=== PATIENT | male | born 1990 | race Caucasian/White ===

== ENCOUNTER 2017-03-05 21:06 | Emergency (ER) | payer MEDICAID ==
[~2017-03-05] VITALS: Ht 181.6 cm; Wt 104.8 kg
[~2017-03-05 21:06] MED LIST: ALBU0.63 INH; ALBU18HF2 INH; ALPR0.5T8 PO; ATEN50TA PO; CLON-241 PO; CYCL-208 PO; HYDR-347 PO; IPRA4AER INH; LACO200T2 PO; ONDA4TAB4 PO; SERT50TA12 PO; TOPI100T43 PO; TOPI25TA64 PO
[2017-03-05 21:09] VITALS: Ht 181.6 cm; Wt 104.8 kg
--- OUTSIDE RECORDS SUMMARY | 2017-03-05 21:11 | XMS REPORT | Continuity of Care Document ---
Author Author [facility] Organization [facility] Address Unknown Phone Unavailable Care Team Providers Care Process Engineering Manager Name Role Phone Jv Magana Primary Care Physician Unavailable Source Comments Some departments are not documenting in the electronic medical record. If you do not see the information that you expected, contact Release of Information in the Health Information Management department at [phone] for further assistance in locating additional records.[facility] Active Allergies and Adverse Reactions Allergen Noted Date Severity Reactions Comments Del 06/27/2014 SEE COMMENTS Depletes potassium Current Medications Prescription Sig. Disp. Refills Start End Date Status Date cyclobenzaprine Take 10 mg by mouth three Active (FLEXERIL) 10 mg tablet times daily as needed. albuterol (VENTOLIN HFA, Inhale 2 Puffs by mouth Active PROAIR HFA) 90 every 6 hours as needed. mcg/actuation inhaler calcium carbonate Take 1,250 mg by mouth Active (CALCIUM 500) 1250 mg daily. tablet clonazePAM (KLONOPIN) 1 Take 1 Tab by mouth twice 8 Tab 0 08//20 Active mg tablet daily. For 3 days then 13 1mg at hs x2 days. lacosamide (VIMPAT) 200 Take 400 mg by mouth Active mg tab twice daily. atenolol (TENORMIN) 25 mg Take 25 mg by mouth Active tablet daily. sertraline (ZOLOFT) 50 mg Take 50 mg by mouth Active tablet daily. topiramate (TOPAMAX) 25 Take 25 mg by mouth every Active mg tablet morning, and 50 mg by mouth at bedtime. acetaminophen-codeine Take by mouth every 3-6 Active (TYLENOL #3) 300-30 mg hours as needed. tablet Active Problems Problem Noted Date Epilepsy (HCC) Depression Dislocation closed, shoulder Overview: multiple times Chronic headaches Numbness Overview: intermittent extremities and face Arthritis Overview: bilateral extremiies and back Tachycardia Hypertension Asthma ADHD (attention deficit hyperactivity disorder) Social History Tobacco Use Types Packs/Day Years Used Date Current Every Day Smoker Cigars 0.25 11 Smokeless Tobacco: Former Quit: User 06/27/2009 Tobacco Cessation: Ready to Quit: Yes; Counseling Given: Yes Comments: Alcohol Use Drinks/Week oz/Week Comments No 0.0 Last Filed Vital Signs Vital Sign Reading Time Taken Blood Pressure 117/64 06/27/2014 10:31 AM CDT Pulse 84 06/27/2014 10:31 AM CDT Temperature 36.8 C (98.2 F) 06/27/2014 10:31 AM CDT Respiratory Rate - - Height 1.778 m (5' 10") 06/27/2014 10:31 AM CDT Weight 86.8 kg (191 lb 5.8 oz) 06/27/2014 10:31 AM CDT Body Mass Index 27.46 06/27/2014 10:31 AM CDT Oxygen Saturation 98% 06/27/2014 10:31 AM CDT Plan of Care Health Maintenance Due Date Last Done Comments Physical (Comprehensive) 1996 Exam Pertussis Vaccine 2000 Tetanus Vaccine 2006 Influenza Vaccine 07/07/2017 Results from Last 3 Months Not on file
--- OUTSIDE RECORDS SUMMARY | 2017-03-05 21:12 | XMS REPORT | Continuity of Care Document ---
Author Author [facility] Organization [facility] Address Unknown Phone Unavailable Support Name Relationship Address Phone TANIA TILLEY MD Caregiver [address] [place] [address] Unavailable FORTINO LAY MD Caregiver [address] [facility] [place] [address] Unavailable IZAIAH BOB Next Of Kin [address] [place] [address] Insurance Providers Guarantor Janki Bob Address [address] [place] [address] Email DENIED 16 Payer [facility] Plan Policy Number [id number] Subscriber's Name Janki Bob Relationship 18 Self Effective Date 16 Expiration Date 16 Advance Directives Directive Response Recorded Date/Time Advanced Directives Type None 03/12/14 9:26pm Ordered Resuscitation Status Full Code 03/12/14 8:21pm Resuscitation Documents on File No 12/05/16 6:25am DPOA for Healthcare Only No 12/05/16 6:25am Living Will No 12/05/16 6:25am Problems Active Problems Medical Problem Onset Date Status Abdominal pain Unknown Acute Acute appendicitis Unknown Acute Alcohol abuse Unknown Acute Alcohol use Unknown Acute Anxiety Unknown Acute Anxiety Unknown Acute Anxiety Unknown Acute Atypical chest pain Unknown Acute Chronic diarrhea Unknown Acute Dehydration Unknown Acute Dizziness Unknown Acute Epigastric abdominal pain Unknown Acute Exhaustion Unknown Acute Fall from one level to another Unknown Acute Foreign body sensation in throat Unknown Acute Gastritis Unknown Acute Headache Unknown Acute History of seizure Unknown Acute History of tonic-clonic seizures Unknown Acute Increased anion gap metabolic acidosis Unknown Acute Leukocytosis Unknown Acute Muscle cramps Unknown Acute Non-cardiac chest pain Unknown Acute Non-cardiac chest pain Unknown Acute Right middle ear infection Unknown Acute Seizure Unknown Acute Spastic intestine Unknown Acute Testicular pain Unknown Acute Viral syndrome Unknown Acute Past Problems Medical Problem Onset Date Alcoholism /alcohol abuse Unknown Chest wall contusion Unknown Fracture, metacarpal shaft Unknown Medications Current Home Medications Medication Dose Units Route Directions Days Qty Instructions Start Date Albuterol Sulfate 0.63 Mg/3 Ml Vial.neb 1 Vial Inhalation As Needed as needed for Shortness Of Air 05/22/15 Albuterol Sulfate (Ventolin Hfa) 18 Gm Hfa.aer.ad 2 Puff Inhalation Every 4 -6 Hours as needed for Shortness Of Air 04/04/13 Albuterol/Ipratropium (Combivent Respimat Inhal [place]) 120 Puff/4 Gm Inha 1 Puff Inhalation As Needed 07/10/16 Alprazolam 0.5 Mg Tablet 0.5 Mg Oral Twice A Day as needed for Prn Orders 01/12/16 Atenolol 50 Mg Tablet 50 Mg Oral Daily 01/12/16 Clonazepam 1 Mg Tablet 1 Mg Oral Twice A Day as needed for Anxiety 01/23/14 Cyclobenzaprine Hcl 10 Mg Tablet 1-2 Tab Oral Bedtime as needed for Spasms 03/31/13 Hydrocodone/Acetaminophen ([place] 7.5-325 Tablet) 7.5-325 Tablet 1-2 Tab Oral Every 4 Hours Prn as needed for Pain 60 Tablet 12/05/16 Lacosamide (Vimpat) 200 Mg Tablet 200 Mg Oral Twice A Day Ondansetron Hcl (Zofran) 4 Mg Tablet 4 Mg Oral Every 6 Hours as needed for Nausea 10 Tablet 12/05/16 Sertraline Hcl (Sertraline) 50 Mg Tablet 50 Mg Oral Daily Topiramate 25 Mg Tablet 25 Mg Oral Twice A Day TAKE WITH 100 MG TO EQUAL 125MG BID 07/10/16 Topiramate 100 Mg Tablet 100 Mg Oral Twice A Day TAKE WITH 25 MG TO EQUAL 125 BID 11/09/15 Past Home Medications Medication Directions Ordered Status Acetaminophen/Codeine Phosphate (Tylenol #3) 1 Tab Tablet, 1-2 Tab Oral Every 6 Hours as needed for Pain 03/12/14 Discontinued Divalproex Sodium (Depakote Er) 500 Mg Tab.sr.24h, 1500 Mg Oral Daily Discontinued Doxycycline Hyclate 100 Mg Tablet, 100 Mg Oral Twice A Day 01/12/16 Discontinued Hydrocodone/Acetaminophen ([place] 5-325 Tablet) 5-325 Tablet, 1 Tab Oral Every 6 Hours as needed for Pain 11/28/16 Discontinued Levetiracetam (Keppra) 1,000 Mg Tablet, 2 Tab Oral Daily 05/16/10 Discontinued Phenytoin Sodium Extended (Dilantin) 100 Mg Capsule, 400 Mg Oral Daily Discontinued Potassium Chloride 20 Meq Tab.prt.sr, 20 Meq Oral Daily 10/30/12 Discontinued Topiramate (Topamax) 50 Mg Tablet, 1 Tab Oral Twice A Day 05/22/15 Discontinued Social History Social History Problem Response Recorded Date/Time Onset Date Status Reason for Hospitalization ORIF LEFT SECOND METACARPAL 12/05/2016 9:21am Not Applicable Not Applicable Chewing Tobacco Status No 03/14/2014 3:00pm Not Applicable Not Applicable Hx Substance Use Y marijuana a couple of weeks ago 12/05/2016 6:33am Not Applicable Not Applicable Hx Alcohol Use Y 6-12 packs a week 12/05/2016 6:33am Not Applicable Not Applicable Has the pt used tobacco in the last 12 months Yes 12/05/2016 6:33am Not Applicable Not Applicable Tobacco Usage smoke 11/27/2014 11:11pm Not Applicable Not Applicable Query Response Start Date Stop Date Smoking Status Current every day smoker Hospital Discharge Instructions Instructions: Care Instructions: I was in the hospital because (patient own words): "surgery on my broken finger on my left hand" Discharge Diet: Resume normal diet as tolerated. Discharge Activity: Please refer to Dr. Tilley's postoperative instructions. Follow Up Appointments: Please refer to Dr. Tilley's postoperative instructions. 12-13-16 AT 2:30 WITH Lucio BUNCH Pending Lab / Results: No Pending Lab Expected Signs/Symptoms: Please refer to Dr. Tilley's postoperative instructions. Notify Physician If: Please refer to Dr. Tilley's postoperative instructions. During Business Hours:: Please call our office at [phone]. After Business Hours:: Please call the hospital at [phone] and have the physician or the covering physician paged. Pain Management/Treatment: Please refer to Dr. Tilley's postoperative instructions. Wound/Incision Care: Please refer to Dr. Tilley's postoperative instructions. Condition at time of discharge: Good Plan of Care Discharge Date 12/05/16 9:46am Instructions/Education Provided [facility] [place] General Instructions Prescriptions See Medication Section Functional Status Query Response Date Recorded Ability to complete ADL's impeded by No change December 05, 2016 6:25am Allergies, Adverse Reactions, Alerts Allergen Type Severity Reaction Status Last Updated Levetiracetam Allergy Severe HYPOKALEMIA, NUMBNESS Active 12/05/16 Immunizations Query Response on File Recorded Date/Time Hx Influenza Vaccination No 12/02/16 9:05am Hx Pneumococcal Vaccination No 12/02/16 9:05am Hx Tetanus, Diptheria, Pertussis Yes 07/10/15 10:50am Hx Influenza Vaccination No 12/02/16 9:05am Hx Tetanus, Diptheria, Pertussis Yes 07/10/15 10:50am Influenza Vaccine Hx NONE 11/27/16 11:47pm Tdap Vaccine Hx UNK 11/27/16 11:30pm Vital Signs Acute Vital Signs Vital Response Date/Time Temperature (Fahrenheit) 97.6 deg F (96.8 - 99.1) 12/05/2016 9:06am Temperature (Calculated Celsius) 36.57465 degrees C (36.0 - 37.3) 12/05/2016 9:06am Temperature Source Oral 12/05/2016 9:06am Pulse Rate (adult) 88 bpm (60 - 100) 12/05/2016 9:39am Respiratory Rate 18 breaths/min (10 - 20) 12/05/2016 9:39am O2 Sat by Pulse Oximetry 97 % (90 - 100) 12/05/2016 9:39am Oxygen Delivery Method Room Air 12/05/2016 7:10am Oxygen Delivery Method Room Air 12/05/2016 9:39am Blood Pressure 108/70 mm Hg 12/05/2016 9:39am Blood Pressure Source Automatic Cuff 12/05/2016 9:39am Height (Feet) 6 feet 12/05/2016 6:09am Height (Inches) 0.00 inches 12/05/2016 6:09am Weight (Kilograms) 103.100 kg 12/05/2016 6:09am Body Mass Index (BMI) 30.8 12/05/2016 6:09am Results Laboratory Results Test Name Result Units Flags Reference Collection Date/Time Result Date/ Time Comments White Blood Count 10.2 T/MM3 4.5-11.0 12/01/2016 2:48pm 12/01/2016 2: 56pm Red Blood Count 4.84 M/MM3 4.50-5.90 12/01/2016 2:48pm 12/01/2016 2: 56pm Hemoglobin 15.3 GM/DL 13.5-17.5 12/01/2016 2:48pm 12/01/2016 2:56pm Hematocrit 45.4 % 41-53 12/01/2016 2:48pm 12/01/2016 2:56pm Mean Corpuscular Volume 93.8 UM3 80-100 12/01/2016 2:48pm 12/01/2016 2: 56pm Mean Corpuscular Hemoglobin 31.6 UUG 26-34 12/01/2016 2:48pm 2016 2:56pm Mean Corpuscular Hemoglobin Concent 33.7 GM/DL 31-37 12/01/2016 2:48pm 12/01/2016 2:56pm RDW Standard Deviation 43.2 FL 36.9-50.2 12/01/2016 2:48pm 12/01/2016 2 :56pm Platelet Count 325 T/MM3 130-400 12/01/2016 2:48pm 12/01/2016 2:56pm Mean Platelet Volume 9.5 UM3 9.4-12.4 12/01/2016 2:48pm 12/01/2016 2: 56pm Neutrophils (%) (Auto) 60.0 % 33-66 12/01/2016 2:48pm 12/01/2016 2: 56pm Lymphocytes (%) (Auto) 29.5 % 23-45 12/01/2016 2:48pm 12/01/2016 2: 56pm Monocytes (%) (Auto) 8.2 % 0-9.0 12/01/2016 2:48pm 12/01/2016 2:56pm Eosinophils (%) (Auto) 1.8 % 0-4 12/01/2016 2:48pm 12/01/2016 2:56pm Basophils (%) (Auto) 0.4 % 0-2 12/01/2016 2:48pm 12/01/2016 2:56pm Immature Granulocyte % (Auto) 0.1 % 0.0-0.5 12/01/2016 2:48pm 2016 2:56pm Absolute Neutrophils (auto) 6.1 T/MM3 1.8-7.7 12/01/2016 2:48pm 2016 2:56pm Absolute Lymphocytes (auto) 3.0 T/MM3 1-4.8 12/01/2016 2:48pm 2016 2:56pm Absolute Monocytes (auto) 0.8 T/MM3 0-0.8 12/01/2016 2:48pm 12/01/2016 2:56pm Absolute Eosinophils (auto) 0.2 T/MM3 0-0.5 12/01/2016 2:48pm 2016 2:56pm Absolute Basophils (auto) 0.0 T/MM3 0-0.2 12/01/2016 2:48pm 12/01/2016 2:56pm Absolute Immature Granulocyte (auto 0.01 T/MM3 0.00-0.03 12/01/2016 2: 48pm 12/01/2016 2:56pm Icterus Index < 2 0-7 12/01/2016 2:48pm 12/01/2016 3:03pm Chemistry Specimen Hemolysis < 15 0-25 12/01/2016 2:48pm 12/01/2016 3 :03pm 0-25: Specimen Exhibited No Hemolysis. Turbidity < 20 0-20 12/01/2016 2:48pm 12/01/2016 3:03pm Sodium Level 141 MEQ/L 134-144 12/01/2016 2:48pm 12/01/2016 3:03pm Potassium Level 4.5 MEQ/L 3.6-5 12/01/2016 2:48pm 12/01/2016 3:03pm Chloride Level 109 MEQ/L H 98-107 12/01/2016 2:48pm 12/01/2016 3:03pm Carbon Dioxide Level 23 MEQ/L 22-30 12/01/2016 2:48pm 12/01/2016 3: 03pm Anion Gap 9 MEQ/L 5-15 12/01/2016 2:48pm 12/01/2016 3:03pm Blood Urea Nitrogen 14.0 MG/DL 9-20 12/01/2016 2:48pm 12/01/2016 3: 03pm Creatinine 1.0 MG/DL 0.8-1.5 12/01/2016 2:48pm 12/01/2016 3:03pm BUN/Creatinine Ratio 14 RATIO 6-26 12/01/2016 2:48pm 12/01/2016 3:03pm Glomerular Filtration Rate Calc 90 12/01/2016 2:48pm 12/01/2016 3: 03pm Glucose Level 107 MG/DL 75-110 12/01/2016 2:48pm 12/01/2016 3:03pm Calculated Osmolality 272 MOSM/KG 261-280 12/01/2016 2:48pm 12/01/2016 3:03pm Calcium Level 10.0 MG/DL 8.4-10.2 12/01/2016 2:48pm 12/01/2016 3:03pm Procedures Procedure Status Date Provider(s) Apply forearm splint Completed 11/27/16 PRASHANT GAMBOA MD X-ray exam of hand Completed 11/27/16 Emergency dept visit Completed 11/27/16 Open reduction and internal fixation of fracture of metacarpal bone of left hand Completed 12/05/16 TANIA TILLEY MD Encounters Encounter Location Arrival/Admit Date Discharge/Depart Date Attending Provider Departed [facility] 12/05/16 5:45am 12/05/16 9: 46am TANIA TILLEY MD Registered Clinic [facility] 12/01/16 2:35pm TANIA TILLEY MD Departed Emergency Room [facility] 11/27/16 11:07pm 11/28/16 12: 38am PRASHANT GAMBOA MD
--- OUTSIDE RECORDS SUMMARY | 2017-03-05 21:12 | XMS REPORT | Continuity of Care Document ---
Author Author [facility] Organization [facility] Address Unknown Phone Unavailable Allergies Active Description Code Type Severity Reaction Onset Reported/Identified Relationship to Patient Clinical Status Yes No Known Allergies Drug Allergy 12/03/2012 Yes No Known Drug Allergies Drug Allergy 12/03/2012 Yes No Known Food Allergies Food Allergy 12/03/2012 Yes Keppra NKMA N/A N/A 02/15/2016 Yes Keppra NKMA N/A N/A 02/15/2016 Medications Medication Packaging Start Date Stop Date Route Dosage Sig topiramate(Topamax) 02/15/2016 Oral 100 mg 100 mg, Oral, BID , 0 Refill(s) sertraline(Zoloft) 02/15/2016 Oral 100 mg 100 mg, Oral, Daily , 0 Refill(s) clonazePAM(clonazePAM) 02/15/2016 Oral 1 mg 1 mg, Oral, BID, 0 Refill(s) cephalexin(cephalexin) 02/15/2016 04/02/2016 Oral Oral, 0 Refill(s) cyclobenzaprine(cyclobenzaprine) 02/15/2016 Oral 10 mg 10 mg , Oral, BID, PRN: as needed for muscle spasm, 0 Refill(s) ALPRAZolam(Xanax) 02/15/2016 Oral 0.5 mg 0.5 mg, Oral, TID, 0 Refill(s) atenolol(atenolol) 02/15/2016 Oral 50 mg 50 mg, Oral, Daily, 0 Refill(s) Sodium Chloride 0.9%(sodium chloride 0.9% 1,000 mL) 1,000 mL 04/02/2016 04/03/2016 IV 100 mL/hr, IV ondansetron(Zofran) 1 tabs 04/02/2016 04/03/2016 Oral 4 mg 4 mg=1 tabs, Oral, q6hr, PRN: Nausea folic acid(folic acid) 1 tabs 04/02/2016 04/03/2016 Oral 1 mg 1 mg=1 tabs, Oral, Daily LORazepam(Ativan) 1 mL 04/02/2016 04/03/2016 IV Push 2 mg 2 mg= 1 mL, IV Push, q5min, PRN: Seizure promethazine(Phenergan) 1 mL 04/02/2016 04/03/2016 IntraMuscular 25 mg 25 mg=1 mL, IntraMuscular, q4hr, PRN: Nausea haloperidol(Haldol) 0.1 mL 04/02/2016 04/03/2016 IV Push 0.5 mg 0.5 mg=0.1 mL, IV Push, q2hr, PRN: Other (See Comment) thiamine(thiamine) 1 tabs 04/02/2016 04/03/2016 Oral 100 mg 100 mg=1 tabs, Oral, Daily ibuprofen(ibuprofen) 1 tabs 04/02/2016 04/03/2016 Oral 400 mg 400 mg=1 tabs, Oral, q6hr, PRN: Pain Mild (1-3) atenolol(atenolol) 1 tabs 04/02/2016 04/03/2016 Oral 50 mg 50 mg= 1 tabs, Oral, Daily sertraline(Zoloft) 1 tabs 04/02/2016 04/03/2016 Oral 100 mg 100 mg=1 tabs, Oral, Daily lacosamide(Vimpat) 1 tabs 04/02/2016 04/03/2016 Oral 200 mg 200 mg=1 tabs, Oral, BID topiramate(Topamax) 1 tabs 04/02/2016 04/03/2016 Oral 100 mg 100 mg=1 tabs, Oral, BID Problems Date Dx Coded Attending Type Code Diagnosis Diagnosed By 12/03/2012 Chandler Nix MD Final 345.90 EPILEPSY NOS W/O INTRACT 04/02/2016 Camelia Vaz Admitting G40.919 04/08/2016 Camelia Vaz Final F10.20 Alcohol dependence, uncomplicated 04/08/2016 Camelia Vaz Final F12.10 Cannabis abuse, uncomplicated 04/08/2016 Camelia Vaz Final F17.200 Nicotine dependence, unspecified, uncomplicated 04/08/2016 Camelia Vaz Final G40.909 Epilepsy, unspecified, not intractable, without status epilepticus 04/08/2016 Camelia Vaz Reason R56.9 Unspecified convulsions Procedures Results Test Result Range Basic Metabolic Panel (BMP) - 04/02/16 02:55 Anion Gap 13 NA 3-20 BUN 11 mg/dL 4-20 Calcium 9.1 mg/dL 8.6-10.0 Chloride 112 mEq/L 99-109 CO2 16 mEq/L 22-32 Creatinine 1.12 mg/dL 0.64-1.27 Glucose 107 mg/dL 70-100 Potassium 4.6 mEq/L 3.6-5.1 Sodium 141 mEq/L 136-144 eGFR - 04/02/16 02:55 eGFR >60 NA >60 Basic Metabolic Panel (BMP) - 04/02/16 03:47 Anion Gap 14 NA 3-20 BUN 10 mg/dL 4-20 Calcium 9.2 mg/dL 8.6-10.0 Chloride 112 mEq/L 99-109 CO2 17 mEq/L 22-32 Creatinine 1.08 mg/dL 0.64-1.27 Glucose 103 mg/dL 70-100 Potassium 4.6 mEq/L 3.6-5.1 Sodium 143 mEq/L 136-144 eGFR - 04/02/16 03:47 eGFR >60 NA >60 Urine Drug Screen - 04/02/16 03:47 Tricyclics Not Detected NA Amph/Meth/Ecstasy Negative NA Barbiturates Negative NA Benzodiazepine Positive NA Cannabinoid Positive NA Cocaine Negative NA EDDP (Methadone met.) Negative NA Opiate Negative NA Phencyclidine (PCP) Negative NA Prolactin - 04/02/16 08:12 Prolactin 3.2 ng/mL 3.5-19.4 Thiamin (Vit B1) - 04/02/16 08:12 Thiamin (Vit B1) 132 nmol/L 70-180 Topiramate - 04/02/16 13:26 Topiramate 4.8 mcg/mL Urinalysis with reflex microscopic - 04/02/16 17:30 Appearance Sl Cloudy NA Bilirubin Negative NA Negative Blood Negative NA Negative Color Yellow NA Glucose, Urine Negative Negative Ketones Pos 1+ Negative Leukocyte Esterase Negative NA Negative Nitrites Negative NA Negative pH 6.0 NA 5.0-8.0 Protein Negative NA Negative Specific Surfside 1.020 NA 1.003-1.030 UA Collection type Clean Catch NA Urobilinogen Negative mg/dL <1.0 Encounters ACCT No. Visit Date/Time Discharge Status Pt. Type Provider Facility Loc./Unit Complaint [id number] 12/03/2012 09:04:00 2012 18:45:00 DIS Inpatient Dinah DAILY, [facility] on [address]
--- OUTSIDE RECORDS SUMMARY | 2017-03-05 21:12 | XMS REPORT | Continuity of Care Document ---
Author Author [facility] Organization [facility] Address Unknown Phone Unavailable Care Team Providers Care Singer Back Tender Name Role Phone FORTINO LAY MD Primary Care Physician [phone] Insurance Providers Payer Name Policy Number Subscriber Name Relationship [facility] [employer] [facility] [id number] Janki Bob 17 Self Advance Directives Directive Response Recorded Date/Time Advanced Directives Type None 03/12/14 9:26pm Ordered Resuscitation Status Full Code 03/12/14 8:21pm Problems Medical Problems Problem Onset Date Status Atypical chest pain Unknown Active Gastritis Unknown Active Leukocytosis Unknown Active Seizure Unknown Active Anxiety Unknown Active History of seizure Unknown Active Non-cardiac chest pain Unknown Active Anxiety Unknown Active Exhaustion Unknown Active Muscle cramps Unknown Active Viral syndrome Unknown Active Dehydration Unknown Active Medications Medication Dose Route Sig Days/Qty Instructions Order Date Discontinued Date Status Phenytoin Sodium Extended 400 Mg PO DAILY 05/16/10 10/30/12 Discontinued Levetiracetam 2 Tab PO DAILY 05/16/10 10/30/12 Discontinued Divalproex Sodium 1,500 Mg PO DAILY 10/30/12 03/31/13 Discontinued Potassium Chloride 20 Meq PO DAILY 10/30/12 04/04/13 Discontinued Cyclobenzaprine Hcl 10 Mg PO THREE TIMES A DAY 03/31/13 Active Albuterol Sulfate NEEDED 04/04/13 Active Atenolol 25 Mg PO DAILY 01/23/14 Active Sertraline Hcl 50 Mg PO DAILY 01/23/14 Active Clonazepam 1 Mg PO TWICE A DAY PRN PRN ORDERS 01/23/14 Active Fluticasone Propionate 100 Mcg IH TWICE A DAY 03/12/14 Active Calcium Carbonate 1 Tab.chew PO NEEDED 03/12/14 Active Acetaminophen/Codeine Phosphate 1 Tab PO NEEDED 03/12/14 Active Ranitidine Hcl 150 Mg PO TWICE A DAY 03/12/14 Active Social History Social History Problem Response Recorded Date/Time Chewing Tobacco Status No 03/14/2014 3:00pm Hx Substance Use Y MARIJUANA AND ETOH 11/27/2014 11:30pm Hx Alcohol Use Yes 11/27/2014 11:30pm Has the pt used tobacco in the last 12 months Yes 03/12/2014 9:27pm Tobacco Usage smoke 11/27/2014 11:11pm Query Response Start Date Stop Date Smoking Status Current every day smoker Hospital Discharge Instructions No hospital discharge instructions. Plan of Care No plan of care. Functional Status Query Response Date Recorded Physical Hygiene Self November 27, 2014 11:30pm Disabilities None November 27, 2014 11:30pm Devices Used None November 27, 2014 11:30pm Dressing Self November 27, 2014 11:30pm Ambulation Self November 27, 2014 11:30pm Diet Self November 27, 2014 11:30pm Mental Status Alert November 28, 2014 12:50am Disabilities None November 27, 2014 11:30pm Devices Used None November 27, 2014 11:30pm Physical Hygiene Self November 27, 2014 11:30pm Dressing Self November 27, 2014 11:30pm Ambulation Self November 27, 2014 11:30pm Diet Self November 27, 2014 11:30pm Allergies, Adverse Reactions, Alerts Allergen Type Severity Reaction Status Last Updated Levetiracetam Allergy Unknown Active 11/27/14 Immunizations Name Given Type Hx Influenza Vaccination N PT REFUSES TO TAKE THEM Historical Hx Pneumococcal Vaccination No Historical Hx Tetanus, Diptheria, Pertussis Yes Historical Hx Influenza Vaccination N PT REFUSES TO TAKE THEM Historical Hx Tetanus, Diptheria, Pertussis Yes Historical Vital Signs Acute Vital Signs Vital Response Date/Time Temperature (Fahrenheit) 98.3 deg F (96.8 - 99.1) Temperature (Calculated Celsius) 36.44169 degrees C (36.0 - 37.3) Pulse Rate (adult) 70 bpm (60 - 100) Respiratory Rate 18 breaths/min (10 - 20) O2 Sat by Pulse Oximetry 100 % (90 - 100) Blood Pressure 125/67 mm Hg Height 5 ft 10 in Weight 202 lb Body Mass Index 29.0 kg/m^2 Results Test Source Date Result Interp. Ref. Range Comments Acetaminophen Level March 14, 2014 3:18pm < 10 UG/ML L 10-30 TOXIC <4 HR POST INGESTION: >150 MG/L;TOXIC <12 HR POST INGESTION: >50 MG/L Activated Partial Thromboplast Time August 09, 2013 7:25am 34.1 SEC N 24-36 Ordering r/o VTE Yes Alanine Aminotransferase (ALT/SGPT) November 27, 2014 11:35pm 18 U/L L 21 -72 Albumin November 27, 2014 11:35pm 4.9 G/DL N 3.5-5.0 Albumin/Globulin Ratio November 27, 2014 11:35pm 1.6 RATIO N 1.1-2.2 Alcohol, Quantitative November 27, 2014 11:35pm 88 MG/DL - Alkaline Phosphatase November 27, 2014 11:35pm 49 U/L N 38-126 Amylase Level January 23, 2014 7:54pm 98 U/L N 30-110 Anion Gap November 27, 2014 11:35pm 14 MEQ/L N 5-15 Aspartate Amino Transf (AST/SGOT) November 27, 2014 11:35pm 39 U/L N 17- 59 BUN/Creatinine Ratio November 27, 2014 11:35pm 6 RATIO N 6-26 Band Neutrophils # March 12, 2014 6:10pm 2.1 T/MM3 - Band Neutrophils % March 12, 2014 6:10pm 11.0 % H 0-6 Basophils # (Auto) November 27, 2014 11:35pm 0.0 T/MM3 N 0-0.2 Basophils (%) (Auto) November 27, 2014 11:35pm 0.3 % N 0-2 Blood Urea Nitrogen November 27, 2014 11:35pm 5.0 MG/DL L 9-20 C-Reactive Protein October 30, 2012 11:55am 6.3 MG/L N 0-9 Calcium Level November 27, 2014 11:35pm 9.8 MG/DL N 8.4-10.2 Calculated Osmolality November 27, 2014 11:35pm 274 MOSM/KG N 261-280 Carbon Dioxide Level November 27, 2014 11:35pm 21 MEQ/L L 22-30 Chloride Level November 27, 2014 11:35pm 109 MEQ/L H 98-107 Conjugated Bilirubin March 31, 2013 10:40pm 0.00 MG/DL N 0.00-0.30 Creatinine November 27, 2014 11:35pm 0.9 MG/DL N 0.8-1.5 D-Dimer March 14, 2014 3:18pm < 150 NG/ML 0-230 <224 NG/ML=PRESUMPTIVE NEGATIVE FOR PE OR DVT>224 NG/ML=ADDITIONAL EVALUATION FOR PE OR DVT RECOMMENDED Eosinophils # (Auto) November 27, 2014 11:35pm 0.4 T/MM3 N 0-0.5 Eosinophils # (Manual) July 03, 2009 5:38pm 0.2 T/MM3 N 0-0.5 Eosinophils % (Manual) July 03, 2009 5:38pm 2.0 % N 0-4 Eosinophils (%) (Auto) November 27, 2014 11:35pm 4.1 % H 0-4 Erythrocyte Sedimentation Rate October 30, 2012 11:55am 2 MM/HR N 0-15 Free Thyroxine March 14, 2014 3:18pm 1.01 NG/DL N 0.78-2.19 Globulin November 27, 2014 11:35pm 3.0 G/DL N 2.4-3.6 Glucose Level November 27, 2014 11:35pm 91 MG/DL N 75-110 Hematocrit November 27, 2014 11:35pm 42.7 % N 41-53 Hemoglobin November 27, 2014 11:35pm 14.5 GM/DL N 13.5-17.5 Influenza Type A Antigen March 14, 2014 4:05pm Negative - Negative for Flu A protein antigen. Assay sensitivity is90%. Influenza Type B Antigen March 14, 2014 4:05pm Negative - Negative for Flu B protein antigen. Assay sensitivity is90%. Lamotrigine (Lamictal) Level March 14, 2014 3:18pm 8.9 mcg/mL - Reference Range:2.5 - 15.0 Test Performed by: [place] [address] Eligibility Clerk: José Miguel Choudhury III, M.D. Lamotrigine performed at [facility], [address] [place] [address] Administrator Pesticide Macey Lin MD Levetiracetam (Keppra) Level January 05, 2012 9:25pm Ref lab rpt scanned - --- 01/09/12 0821 ---NGUYEN previously reported as: SEND OUT --- 01/09/12820 --- LEVET previously reported as: --- 01/09/12820 --- LEVET previously reported as: SEND OUT Lipase November 27, 2014 11:35pm 33 U/L N 23-300 Lymphocytes # (Auto) November 27, 2014 11:35pm 4.2 T/MM3 N 1-4.8 Lymphocytes # (Manual) March 12, 2014 6:10pm 1.1 T/MM3 N 1-4.8 Lymphocytes % (Manual) March 12, 2014 6:10pm 6.0 % L 23-45 Lymphocytes (%) (Auto) November 27, 2014 11:35pm 47.1 % H 23-45 Mean Corpuscular Hemoglobin November 27, 2014 11:35pm 31.9 UUG N 26-34 Mean Corpuscular Hemoglobin Concent November 27, 2014 11:35pm 34.0 GM/DL N 31-37 Mean Corpuscular Volume November 27, 2014 11:35pm 94.1 UM3 N 80-100 Mean Platelet Volume November 27, 2014 11:35pm 10.4 UM3 N 9.4-12.4 Monocytes # (Auto) November 27, 2014 11:35pm 0.7 T/MM3 N 0-0.8 Monocytes # (Manual) July 03, 2009 5:38pm 0.4 T/MM3 N 0-0.8 Monocytes % (Manual) July 03, 2009 5:38pm 4.0 % N 0-9.0 Monocytes (%) (Auto) November 27, 2014 11:35pm 8.4 % N 0-9.0 Monoscreen October 30, 2012 11:55am Negative - Neutrophils # (Auto) November 27, 2014 11:35pm 3.5 T/MM3 N 1.8-7.7 Neutrophils # (Manual) March 12, 2014 6:10pm 15.9 T/MM3 H 1.8-7.7 Neutrophils % (Manual) March 12, 2014 6:10pm 83.0 % H 33-66 Neutrophils (%) (Auto) November 27, 2014 11:35pm 39.5 % N 33-66 Phenytoin (Dilantin) Level January 06, 2012 11:35am 16.6 UG/ML N 10-20 Platelet Count November 27, 2014 11:35pm 204 T/MM3 N 130-400 Potassium Level November 27, 2014 11:35pm 4.3 MEQ/L N 3.6-5 Prolactin March 14, 2014 3:18pm 6.5 NG/ML - Normal Female (Non- ): 3.0-18.6 ng/ml;Males: 3.7-17.9 ng/ml Prothromb Time International Ratio August 09, 2013 7:25am 0.95 N 0.86- 1.10 THERAPUTIC RANGE=2.00-3.00 FOR ANTI-THROMBOSIS THERAPUTIC RANGE=2.50- 3.50 FOR IMPLANTED VALVE RDW Standard Deviation November 27, 2014 11:35pm 43.5 FL N 36.9-50.2 Red Blood Count November 27, 2014 11:35pm 4.54 M/MM3 N 4.50-5.90 Rotavirus Antigen (LAB) July 30, 2014 12:00am Negative - Salicylates Level March 14, 2014 3:18pm < 1.0 MG/DL L 2-20 Sodium Level November 27, 2014 11:35pm 144 MEQ/L N 134-144 Stool Occult Blood July 30, 2014 12:00am Negative - Stool for White Cells July 30, 2014 12:00am Positive - Thyroid Stimulating Hormone (TSH) March 14, 2014 3:18pm 2.21 MIU/L DN 0.47 -4.68 Topiramate Level March 14, 2014 3:18pm 2.5 mcg/mL - Reference Range: 2.0 - 20.0 Test Performed by: [place] [address] Eligibility Clerk: José Miguel Choudhury III, M.D. [place] [address] Administrator Pesticide Macey Lin MD Total Bilirubin November 27, 2014 11:35pm 0.60 MG/DL N 0.20-1.30 Total Protein November 27, 2014 11:35pm 7.9 G/DL N 6.3-8.2 Troponin I March 14, 2014 3:18pm < 0.012 ng/ml 0-0.12 Unconjugated Bilirubin March 31, 2013 10:40pm 0.00 MG/DL N 0.00-1.10 Urine Bacteria March 12, 2014 7:37pm Trace H - Has specimen been collected/obtained? Y Urine Bilirubin November 27, 2014 11:25pm Negative - Has specimen been collected/obtained? Y Urine Blood November 27, 2014 11:25pm Negative - Has specimen been collected/obtained? Y Urine Collection Type November 27, 2014 11:25pm Cleancatch-midstream - Has specimen been collected/obtained? Y Urine Color November 27, 2014 11:25pm Yellow - Has specimen been collected/obtained? Y Urine Glucose (UA) November 27, 2014 11:25pm Negative - Has specimen been collected/obtained? Y Urine Ketones November 27, 2014 11:25pm Negative - Has specimen been collected/obtained? Y Urine Leukocyte Esterase November 27, 2014 11:25pm Negative - Has specimen been collected/obtained? Y Urine Mucus March 12, 2014 7:37pm Present - Has specimen been collected /obtained? Y Urine Nitrite November 27, 2014 11:25pm Negative - Has specimen been collected/obtained? Y Urine Protein November 27, 2014 11:25pm Negative - Has specimen been collected/obtained? Y Urine RBC March 12, 2014 7:37pm None seen /HPF - Has specimen been collected/obtained? Y Urine Specific [place] November 27, 2014 11:25pm 1.015 - Has specimen been collected/obtained? Y Urine Sperm March 12, 2014 7:37pm Present - Has specimen been collected /obtained? Y Urine Squamous Epithelial Cells March 12, 2014 7:37pm None seen - Has specimen been collected/obtained? Y Urine Turbidity November 27, 2014 11:25pm Clear - Has specimen been collected/obtained? Y Urine Urobilinogen November 27, 2014 11:25pm 0.2 EU/DL - Has specimen been collected/obtained? Y Urine WBC March 12, 2014 7:37pm 1-3 /HPF - Has specimen been collected/ obtained? Y Urine pH November 27, 2014 11:25pm 7.5 - Has specimen been collected/ obtained? Y Valproic Acid (Depakene) Level October 30, 2012 11:55am 36.3 UG/ML L 50 -120 White Blood Count November 27, 2014 11:35pm 8.9 T/MM3 N 4.5-11.0 Chemistry Specimen Hemolysis November 27, 2014 11:35pm 150 H 0-25 0-25: No Hemolysis.26-70: Slight Hemolysis - can falsely elevate K and Urine Protein. 71-285: Moderate Hemolysis - can falsely elevate K, Troponin I, CA 19-9, PTH, CSF GLucose, and Urine Protein, and can falsely decrease Phenytoin. 286-999: Gross Hemolysis - can falsely elevate K, Troponin I, CA 19-9, PTH, CSF Glucose, and Urine Protine, and can falsely decrease Phenytoin. Recommend specimen recollection. Urinalysis Comment November 27, 2014 11:25pm Microscopic not ind. - Has specimen been collected/obtained? Y Lab Scanned Report July 30, 2014 7:02pm LAB TEST FORM REQUEST [id number] - EKG July 03, 2009 5:40pm Complete - Turbidity November 27, 2014 11:35pm < 20 0-20 Glomerular Filtration Rate Calc November 27, 2014 11:35pm 103 - Immature Granulocyte # (Auto) November 27, 2014 11:35pm 0.05 T/MM3 H 0.00 -0.03 Immature Granulocyte % (Auto) November 27, 2014 11:35pm 0.6 % H 0.0-0.5 Icterus Index November 27, 2014 11:35pm < 2 0-7 FW-Imr-I-Type Natriuretic Peptide August 09, 2013 7:25am 6 PG/ML N 0- 175 Rule in cut points: <50 years old=450; 50-75 years old=900; >75 years old=1800; When utilizing ProBNP rule-in cut points, adjustment for impaired renal function is typically not required. Urine Microscopic Not Indicated May 16, 2010 1:55am Not indicated - Has specimen been collected/obtained? Y Clostridium difficile [id number] July 30, 2014 12:00am Negative - C. difficile Toxin B Gene (PCR) July 30, 2014 12:00am Negative - If Toxin A is clinically indicated, treat accordingly. Stool Culture Stool July 30, 2014 12:00am Helicobacter pylori Rapid Urease Gastric Biopsy April 05, 2013 1:44pm Procedures No known history of procedures. Encounters Encounter Location Date/Time Departed Emergency Room [facility] 11/27/14 9:56pm Recent Diagnosis
--- OUTSIDE RECORDS SUMMARY | 2017-03-05 21:31 | XMS REPORT | Continuity of Care Document ---
Author Author [facility] Organization [facility] Address Unknown Phone Unavailable Care Team Providers Care Certified Surgical Assistant Name Role Phone Jv Magana Primary Care Physician Unavailable Source Comments Some departments are not documenting in the electronic medical record. If you do not see the information that you expected, contact Release of Information in the Health Information Management department at [phone] for further assistance in locating additional records.[facility] Active Allergies and Adverse Reactions Allergen Noted [...]
--- OUTSIDE RECORDS SUMMARY | 2017-03-05 21:32 | XMS REPORT | Continuity of Care Document ---
Author Author [facility]3] Organization [facility]3] Address Unknown Phone Unavailable Allergies Active Description [...] NA 5.0-8.0 Protein Negative NA Negative Specific [place] 1.020 NA 1.003-1.030 UA Collection type Clean Catch NA Urobilinogen Negative mg/dL <1.0 Encounters ACCT No. Visit Date/Time Discharge Status Pt. Type Provider Facility Loc./Unit Complaint [id number] 12/03/2012 09:04:00 2012 18:45:00 DIS Inpatient Dinah DAILY, [facility] on [address]
--- OUTSIDE RECORDS SUMMARY | 2017-03-05 21:32 | XMS REPORT | Continuity of Care Document ---
Author Author [facility] Organization [facility] Address Unknown Phone Unavailable Care Team Providers Care Hematology Supervisor Name Role Phone FORTINO LAY MD Primary Care Physician [phone] Insurance Providers Payer Name Policy Number Subscriber Name Relationship [facility] [employer] [facility] [id number] Janki Bob 17 Self Advance Directives Directive [...] F (96.8 - 99.1) Temperature (Calculated Celsius) 36.53866 degrees C (36.0 - 37.3) Pulse Rate [...] Reference Range:2.5 - 15.0 Test Performed by: [place] [address] Meat Dresser: José Miguel Choudhury III, M.D. Lamotrigine performed at [facility], [address] [place] [address] Video Production Assistant Macey Lin MD Levetiracetam (Keppra) Level January [...] Range: 2.0 - 20.0 Test Performed by: [place] [address] Meat Dresser: José Miguel Choudhury III, M.D. [place] [address] Video Production Assistant Macey Lin MD Total Bilirubin November 27, [...] Has specimen been collected/obtained? Y Urine Specific [place] November 27, 2014 11:25pm 1.015 - Has [...] 30, 2014 7:02pm LAB TEST FORM REQUEST [id number] - EKG July 03, 2009 5:40pm Complete - Turbidity November 27, 2014 11:35pm < 20 0-20 Glomerular Filtration Rate Calc November 27, 2014 11:35pm 103 - Immature Granulocyte # (Auto) November 27, 2014 11:35pm 0.05 T/MM3 H 0.00 -0.03 Immature Granulocyte % (Auto) November 27, 2014 11:35pm 0.6 % H 0.0-0.5 Icterus Index November 27, 2014 11:35pm < 2 0-7 MU-Jif-T-Type Natriuretic Peptide August 09, 2013 7:25am 6 [...] Encounters Encounter Location Date/Time Departed Emergency Room [facility] 11/27/14 9:56pm Recent Diagnosis
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
[2017-03-05 23:00] VITALS: BP 131/76; PULSE 78; RESP 14; TEMP 98.1; O2SAT 99
--- NOTE | 2017-03-05 23:00 | NUR ---
DEPART PT GIVEN DI FOR CONTUSION IN ADULTS AND F/U. PT VERBALIZES UNDERSTANDING OF DI. QUESITONS ASKED/ANSWERED - DENIES FURTHER QUESTIONS/NEEDS AT THIS TIME. PERSONAL BELONGINGS GATHERED. PT AMBULATED/ESCORTED TO ED EXIT - GAIT STABLE, NO SIGN OF DISTRESS.
--- NOTE | 2017-03-06 08:21 | DI ---
Indication: ITS.REASON: right rib pain post fall. Procedure: RIBS RIGHT WITH AP CHEST: Encounter: Initial Comparison: 12/01/2016 Technique: A PA view of the chest and three views of the right ribs were obtained. Findings: Lungs and airways: Mildly low lung volumes. No focal airspace consolidation. Normal pulmonary vasculature. Pleura: No pleural effusion or pneumothorax. Heart and mediastinum: The cardiomediastinal silhouette and great vessels are within normal limits. Osseous structures and soft tissues: No acute osseous abnormality is seen. Impression: No acute displaced rib fracture or other acute cardiopulmonary process identified. .
--- NOTE | 2017-03-06 08:32 | DI ---
Indication: ITS.REASON: fall, head injury, intoxication Procedure: CT HEAD W/O CONTRAST: Encounter: Initial Comparison: 03/14/2014 Technique: Axial CT images through the head were performed without contrast. Iterative Reconstruction dose reducing technique was utilized. FINDINGS: The normal osorio-white matter differentiation is maintained. No intra-axial or extra-axial mass or hemorrhage seen. No mass effect or midline shift. The ventricles and cerebral sulci are normal in size, shape, and configuration without evidence of hydrocephalus. The basilar cisterns are patent. No extracalvarial scalp swelling. No acute calvarial fracture. The visualized paranasal sinuses and mastoid air cells are well-aerated. The visualized orbits and globes appear normal. IMPRESSION: No acute intracranial process identified by CT. The above report concurs with the preliminary report provided by [facility] at 10:46 PM. .
== END 2017-03-05 23:00 | disposition home or self-care (01) ==
LOC: ED 21:06
DX: S00.83XA Contusion of other part of head, initial encounter (principal); S20.211A Contusion of right front wall of thorax, initial encounter; W03.XXXA Other fall on same level due to collision with another person, initial encounter; Y93.9 Activity, unspecified; Y92.89 Other specified places as the place of occurrence of the external cause; Y99.8 Other external cause status

== ENCOUNTER → 2017-03-08 | Outpatient (CLI) | payer MEDICAID ==
--- NOTE | 2017-03-08 16:44 | DI ---
Indication: ITS.REASON: S69.90X LEFT HAND INJURY PROCEDURE: HAND LEFT 3 VIEW: Encounter: Subsequent Comparison: November 27, 2016 Findings: Internally fixed second metacarpal fracture is stable in alignment with interval healing and bridging callus formation. No new fracture or dislocation seen. No evidence of hardware loosening or failure. Joint spaces are normal. Impression: Stable alignment and routine healing of the internally fixed second metacarpal fracture. .
== END ==
LOC: IMA 16:06
PROVIDERS: ATTEND Family Medicine
DX: S62.301D Unspecified fracture of second metacarpal bone, left hand, subsequent encounter for fracture with routine healing (principal); W19.XXXD Unspecified fall, subsequent encounter